=== PATIENT | female | born 1975 | race Caucasian/White ===

== ENCOUNTER 2025-07-17 12:30 | Emergency (ER) | payer BC, OTHER ==
[~2025-07-17] VITALS: Ht 162.6 cm; Wt 67.6 kg
[2025-07-17 12:37] VITALS: BP 99/59
[2025-07-17 13:24] LABS: *BILIRUBIN,URIN NEGATIVE (NEGATIVE); *BLOOD, URINE NEGATIVE (NEGATIVE); *CLARITY,URINE CLEAR (CLEAR); *COLOR,URINE YELLOW (YELLOW); *KETONES,URINE NEGATIVE (NEGATIVE); *PROTEIN,URINE NEGATIVE (NEGATIVE); *UROBILINOGEN,URINE 0.2 E.U./dl (NORMAL); LEUKOCYTE ESTERASE ,URINE NEGATIVE (NEGATIVE); NITRITE, URINE NEGATIVE (NEGATIVE); UGLUCOSE NEGATIVE (NEGATIVE)
[2025-07-17 13:31] LABS: PLATELET COUNT (AUTO) 178 K/uL (179-408); RED BLOOD CELL COUNT(AUTO) 4.45 MIL/uL (3.63-4.92); RED CELL DISTRIBUTION WIDTH 13.1 % (12.3-17.7); WHITE BLOOD COUNT (AUTO) 5.6 K/uL (3.8-11.8)
[2025-07-17 13:43] LABS: ASPARTATE AMINOTRANSFERASE 21 U/L (15-37); CREATININE 0.6 mg/dL (0.6-1.3); SODIUM SERUM 140 mmol/L (136-145); TOTAL PROTEIN, SERUM 6.6 g/dL (6.4-8.2); UREA NITROGEN, BLOOD 12 mg/dL (7-18)
[2025-07-17 14:14] LABS: PREGNANCY TEST SERUM QUAN < 1 miul/L (0-6)
[2025-07-17] MEDS ORDERED: IV NS 1000 ML 1,000 ML IV ONE (14:15)
[2025-07-17] MEDS ORDERED: diphenhydrAMINE 50 MG/1 ML VIAL IV ONE (14:15)
[2025-07-17] MEDS ORDERED: MAGNESIUM SULFATE/D5W 100 ML IV SCH (14:15)
[2025-07-17] MEDS ORDERED: HYDROMORPHONE 1 MG/1 ML DISP.SYRIN IV ONE (14:15)
[2025-07-17 15:52] VITALS: BP 99/59; TEMP 97.9; O2SAT 100
== END 2025-07-17 15:52 | disposition home or self-care (01) ==
LOC: ER 12:30
DX: N83.209 Unspecified ovarian cyst, unspecified side (principal); Q63.2 Ectopic kidney; Z88.5 Allergy status to narcotic agent; Z90.49 Acquired absence of other specified parts of digestive tract
CPT/HCPCS: 36415; 76856; 85025; A4606; A4663